=== PATIENT | female | born 1960 | race Caucasian/White ===

== ENCOUNTER 2017-03-07 07:53 | Day surgery (SDC) | payer BC, OTHER ==
[~2017-03-07] VITALS: Ht 160 cm; Wt 98.0 kg
[~2017-03-07 07:53] MED LIST: TUMERIC PO; VITA500046 PO
[2017-03-07] MEDS ORDERED: NS 1,000 ML IV ONE (08:00)
[2017-03-07] MEDS ORDERED: LIDOCAINE 2% INJ 100 MG/5 ML SDV (FOR ANES.) As Ordered ONE (09:05)
[2017-03-07] MEDS ORDERED: PROPOFOL 200 MG/20 ML VIAL As Ordered ONE (09:05)
--- NOTE | 2017-03-07 09:23 | ROOR ---
Patient Name: José Luis Chatman Procedure Date: 03/07/2017 9:02 AM Date of : 1960 Age: 56 Room: [facility] Gender: Female Note Status: Finalized Procedure: Colonoscopy Indications: Screening for colorectal malignant neoplasm Providers: Lucas Vincent Jr, MD Referring MD: Zhanna Alexandra DO Requesting Provider: Medicines: Propofol per Anesthesia Complications: No immediate complications. Procedure: Pre-Anesthesia Assessment: - Prior to the procedure, a History and Physical was performed, and patient medications and allergies were reviewed. The patient is competent. The risks and benefits of the procedure and the sedation options and risks were discussed with the patient. All questions were answered and informed consent was obtained. Patient identification and proposed procedure were verified by the physician and the nurse in the pre-procedure area and in the procedure room. Mental Status Examination: alert and oriented. Airway Examination: normal oropharyngeal airway and neck mobility. Respiratory Examination: clear to auscultation. CV Examination: normal. ASA Grade Assessment: II - A patient with mild systemic disease. After reviewing the risks and benefits, the patient was deemed in satisfactory condition to undergo the procedure. The anesthesia plan was to use moderate sedation / analgesia (conscious sedation). Immediately prior to administration of medications, the patient was re-assessed for adequacy to receive sedatives. The heart rate, respiratory rate, oxygen saturations, blood pressure, adequacy of pulmonary ventilation, and response to care were monitored throughout the procedure. The physical status of the patient was re-assessed after the procedure. The Colonoscope was introduced through the anus and advanced to the cecum, identified by appendiceal orifice and ileocecal valve. The quality of the bowel preparation was adequate and good. The colonoscopy was performed without difficulty. The patient tolerated the procedure well. Findings: The perianal and digital rectal examinations were normal. Pertinent negatives include normal sphincter tone, no palpable rectal lesions and no anal lesion or abnormality was detected. Multiple small and large-mouthed diverticula were found in the sigmoid colon. The rectum, recto-sigmoid colon, descending colon, transverse colon, ascending colon, cecum, appendiceal orifice and ileocecal valve appeared normal. A diminutive polyp was found in the hepatic flexure. The polyp was removed with a jumbo cold forceps. Resection and retrieval were complete. Impression: - Diverticulosis in the sigmoid colon. - The rectum, recto-sigmoid colon, descending colon, transverse colon, ascending colon, cecum, appendiceal orifice and ileocecal valve are normal. - One diminutive polyp at the hepatic flexure, removed with a jumbo cold forceps. Resected and retrieved. Recommendation: - Repeat colonoscopy in 5-10 years for surveillance based on pathology results. Lucas Vincent MD Lucas Vincent Jr, MD 03/07/2017 9:23:24 AM This report has been signed electronically. Number of Addenda: 0 Note Initiated On: 03/07/2017 9:02 AM Estimated Blood Loss: Estimated blood loss: none.
[2017-03-07 09:40] VITALS: BP 138/77
== END 2017-03-07 09:53 | disposition home or self-care (01) ==
LOC: M OPP 07:53 → EDSTATUS 09:00 → M OPP 09:53
PROVIDERS: ATTEND Surgery
DX: Z12.11 Encounter for screening for malignant neoplasm of colon (principal); K57.30 Diverticulosis of large intestine without perforation or abscess without bleeding; D12.3 Benign neoplasm of transverse colon; E66.9 Obesity, unspecified; F17.210 Nicotine dependence, cigarettes, uncomplicated; Z88.0 Allergy status to penicillin

== ENCOUNTER → 2018-07-28 | Outpatient (CLI) | payer BC ==
--- NOTE | 2018-07-28 15:48 | REPMRS ---
Patient History The patient states she had a clinical breast exam in 07/2018. Patient had first child at age 35. Family history of breast cancer at age 50 or over in paternal grandmother, pancreatic cancer in mother. Took hormonal contraceptives for 10 years. 3D TOMOSYNTHESIS WAS PERFORMED. Digital Woman Screen Mammo: July 28, 2018 - Exam #: [id number] Bilateral CC and MLO view(s) were taken. Technologist: Jennyfer Wagoner, Technologist Prior study comparison: August 01, 2015, bilateral digital mammo screening bilat, performed at [facility]. July 25, 2015, digital woman screen mammo performed at [facility]. FINDINGS: The breast tissue is heterogeneously dense. This may lower the sensitivity of mammography. There has been no change in the appearance of the mammogram from the prior studies. There is a moderate amount of residual fibroglandular tissue which is fairly symmetric. There is no interval development of dominant mass, areas of architectural distortion, or clustered microcalcification typical of malignancy. Assessment: BI-RADS/ACR category 1 mammogram. Negative Mammogram. Recommendation Routine screening mammogram in 1 year (for women over age 40). This mammogram was interpreted with the aid of an FDA-approved computer-aided dectection system. Electronically Signed By: Raheem Marcano MD 07/28/18 [id number]
== END ==
LOC: M WHC 14:36
PROVIDERS: ATTEND Nurse Practitioner Family
DX: Z12.31 Encounter for screening mammogram for malignant neoplasm of breast (principal); Z80.0 Family history of malignant neoplasm of digestive organs; Z92.0 Personal history of contraception

== ENCOUNTER → 2018-07-28 | Outpatient (REF) | payer OTHER ==
[2018-07-30 14:25] LABS: HPV HYBRID CAPTURE II Negative (Negative)
== END ==
LOC: M SFHCWAGY 15:05
PROVIDERS: ATTEND Nurse Practitioner Family
DX: Z01.419 Encounter for gynecological examination (general) (routine) without abnormal findings (principal)

== ENCOUNTER → 2018-08-25 | Outpatient (CLI) | payer BC, OTHER ==
--- NOTE | 2018-08-26 02:32 | REP ---
Nickel: Sciatica. Technique: AP, lateral, bilateral oblique, and coned-down views. Findings: Focal early advanced degenerative disc osteophyte complex at L2-3 includes endplate sclerosis, disc space narrowing, and osteophyte formation. Moderate degenerative disc osteophyte complex at L1-2 also identified. Remainder examination appears relatively normal for age. Impression: Focal moderate/early advanced degenerative changes at L1-2 and L2-3 respectively. Electronically Signed by Satnam Patino MD 08/26/2018 02:24 A
== END ==
LOC: M ADAMS 14:15
PROVIDERS: ATTEND Physician Assistant Medical
DX: M25.78 Osteophyte, vertebrae (principal); M51.36 Other intervertebral disc degeneration, lumbar region

== ENCOUNTER → 2018-12-25 | Outpatient (REF) | payer OTHER | LOC: M SFHCWAGY 15:19 | PROVIDERS: ATTEND Nurse Practitioner Family | DX: R87.615 Unsatisfactory cytologic smear of cervix (principal) ==

== ENCOUNTER → 2019-11-03 | Outpatient (REF) | payer OTHER ==
[2019-11-03 14:13] LABS: BLOOD UREA NITROGEN 18 MG/DL (7-18); CALCIUM LEVEL 8.8 MG/DL (8.5-10.1); CARBON DIOXIDE LEVEL 23 MEQ/L (21-32); CHLORIDE LEVEL 109 MEQ/L (98-107); CREATININE FOR GFR 0.59 MG/DL (0.55-1.30); GLOMERULAR FILTRATION RATE > 60.0 (>51); GLUCOSE, FASTING 93 MG/DL (70-100); SODIUM LEVEL 138 MEQ/L (136-145)
== END ==
LOC: M LABDRWAD 12:58
PROVIDERS: ATTEND Internal Medicine
DX: E78.00 Pure hypercholesterolemia, unspecified (principal)

== ENCOUNTER → 2019-11-09 | Outpatient (CLI) | payer BC, OTHER ==
--- NOTE | 2019-11-09 11:42 | REPMRS ---
Patient History The patient states she had a clinical breast exam in October 2019.Family history of breast cancer at age 50 or over in paternal grandmother, pancreatic cancer in mother. Took hormonal contraceptives for 10 years. 3D TOMOSYNTHESIS WAS PERFORMED. The [place] lifetime risk for breast cancer is 14.5%. VOLPARA DENSITY B. Digital Woman Screen Mammo: November 09, 2019 - Exam #: [id number] Bilateral CC and MLO view(s) were taken. Technologist: Vannesa Phoenix, Technologist Prior study comparison: July 28, 2018, bilateral digital woman screen mammo performed at [facility]. August 01, 2015, bilateral digital mammo screening bilat, performed at [facility]. FINDINGS: The breast tissue is heterogeneously dense. This may lower the sensitivity of mammography. There has been no change in the appearance of the mammogram from the prior studies. There is a moderate amount of residual fibroglandular tissue which is fairly symmetric. There is no interval development of dominant mass, areas of architectural distortion, or clustered microcalcification typical of malignancy. Assessment: BI-RADS/ACR category 1 mammogram. Negative Mammogram. Recommendation Routine screening mammogram in 1 year (for women over age 40). This mammogram was interpreted with the aid of an FDA-approved computer-aided dectection system. Electronically Signed By: Raheem Marcano MD 11/09/19 [id number]
== END ==
LOC: M WHC 09:34
PROVIDERS: ATTEND Nurse Practitioner Family
DX: Z12.31 Encounter for screening mammogram for malignant neoplasm of breast (principal); Z80.3 Family history of malignant neoplasm of breast

== ENCOUNTER → 2020-11-22 | Outpatient (CLI) | payer BC ==
--- NOTE | 2020-11-22 17:19 | REPMRS ---
Patient History The patient states she had a clinical breast exam in October 2020. Family history of breast cancer at age 50 or over in paternal grandmother, pancreatic cancer in mother. Took hormonal contraceptives for 10 years. Patient states no breast complaints today. Patient has signed MRS History Sheet. Digital Woman Screen Mammo: November 22, 2020 - Exam #: [id number] Bilateral CC and MLO view(s) were taken. Technologist: Tosha Kapoor, Technologist Prior study comparison: November 09, 2019, bilateral digital woman screen mammo performed at [facility]. July 28, 2018, bilateral digital woman screen mammo performed at [facility]. FINDINGS: There are scattered fibroglandular densities. Screening. Digital screening (2D) mammography was performed bilaterally in the CC and MLO projections. Additionally, breast tomosynthesis (3D mammography) was performed bilaterally in the CC and MLO projections. Todays exam was compared to the prior exam/exams. By history, the patient has no complaints of a palpable breast abnormality or other significant breast complaints. The breasts are unchanged in size and shape. There are no flakito-soft tissue densities or spiculated masses. There is no internal architectural distortion.Once again, stable benign appearing calcifications are seen. There are no suspicious flakito-calcific clusters. Skin thickening or nipple retraction is not present. IMPRESSION: BI-RADS Category 2- Benign Findings. There is no evidence of malignant alteration of the breasts. Followup examination recommended in one year. The Volpara volumetric breast density category is B, there are scattered areas of fibroglandular densities. This mammogram was read with the assistance of [facility],an FDA approved computer aided detection system for mammography. The lifetime Tyrer-Cuzick score is 13.8 % Negative x-ray reports should not delay surgical consultation if a dominant or clinically suspicious mass is present. Not all breast cancers can be identified by mammography. Therefore, we recommend that you continue to perform regular breast self-examination and physical examination and then promptly contact your physician of any concerns or changes. Adenosis and dense breasts may obscure an underlying neoplasm. Assessment: BI-RADS/ACR category 2 mammogram. Benign Findings. Recommendation Routine screening mammogram of both breasts in 1 year. Electronically Signed By: Andrew Valles DO 11/22/20 1711
== END ==
LOC: M WHC 14:50
PROVIDERS: ATTEND Nurse Practitioner Women's Health
DX: Z12.31 Encounter for screening mammogram for malignant neoplasm of breast (principal); Z80.3 Family history of malignant neoplasm of breast; Z80.0 Family history of malignant neoplasm of digestive organs; R92.1 Mammographic calcification found on diagnostic imaging of breast

== ENCOUNTER → 2020-11-22 | Outpatient (REF) | payer OTHER | LOC: M SFHCWAGY 08:43 | PROVIDERS: ATTEND Nurse Practitioner Women's Health | DX: Z12.4 Encounter for screening for malignant neoplasm of cervix (principal); Z77.9 Other contact with and (suspected) exposures hazardous to health ==

== ENCOUNTER → 2022-03-05 | Outpatient (CLI) | payer BC, OTHER | LOC: M WHC 13:48 | PROVIDERS: ATTEND Nurse Practitioner Family | DX: Z12.31 Encounter for screening mammogram for malignant neoplasm of breast (principal) ==

== ENCOUNTER → 2023-03-26 | Outpatient (CLI) | payer BC, OTHER | LOC: M WHC 15:50 | PROVIDERS: ATTEND Internal Medicine | DX: Z12.31 Encounter for screening mammogram for malignant neoplasm of breast (principal); R92.323 Mammographic fibroglandular density, bilateral breasts ==

== ENCOUNTER → 2024-06-17 | Outpatient (CLI) | payer BC | LOC: M WHC 11:53 | PROVIDERS: ATTEND Internal Medicine | DX: Z12.31 Encounter for screening mammogram for malignant neoplasm of breast (principal); R92.333 Mammographic heterogeneous density, bilateral breasts ==

== ENCOUNTER → 2024-08-28 | Outpatient (CLI) | payer BC ==
[~2024-08-28] MED LIST changes: +PROT1TAB2 PO
[2024-08-28 13:35] LABS: BLOOD UREA NITROGEN 18 MG/DL (9-23); CREATININE FOR GFR 0.64 MG/DL (0.55-1.30); GLOMERULAR FILTRATION RATE > 90.0 (>45)
== END ==
LOC: M PLALAB 10:10
PROVIDERS: ATTEND Physician Assistant
DX: K57.30 Diverticulosis of large intestine without perforation or abscess without bleeding (principal)

== ENCOUNTER 2024-08-29 11:34 | Emergency (ER) | payer BC ==
[~2024-08-29] VITALS: Ht 157.5 cm; Wt 95.8 kg
[~2024-08-29 11:34] MED LIST changes: -PROT1TAB2 PO
[2024-08-29] MEDS: MORPHINE 4 MG/ML 1ML VIAL IV ONE (12:36)
[2024-08-29] MEDS: ONDANSETRON 4MG 2ML VIAL IV ONE (12:37)
[2024-08-29] MEDS: NS (Normal Saline) 0.9% 1,000 ML IV SCH (12:37)
[2024-08-29 12:40] LABS: BASO % 0.4 % (0.0-1.0); EOS # 0.1 10^3/uL (0.0-0.5); EOS % 1.6 % (0.0-3.0); HEMATOCRIT 42.2 % (36.0-47.0); HEMOGLOBIN 14.6 g/dl (12.0-15.5); LYMPH % 25.7 % (24.0-44.0); MEAN CORPUSCULAR HEMOGLOBIN 30.8 pg (27.0-33.0); MEAN CORPUSCULAR HGB CONC 34.6 g/dl (32.0-36.5); MONO # 0.4 10^3/uL (0.0-0.8); MONO % 5.3 % (2.0-8.0); NEUTROPHILS # 5.2 10^3/uL (1.5-8.5); NEUTROPHILS % 66.6 % (36.0-66.0); PLATELET COUNT, AUTOMATED 217 10^3/uL (150-450); RED BLOOD COUNT 4.74 10^6/uL (4.00-5.40); WHITE BLOOD COUNT 7.7 10^3/uL (4.0-10.0)
[2024-08-29 13:06] LABS: CK-MB VALUE MASS < 1.0 NG/ML (<3.6); LIPASE 30 U/L (12-53)
[2024-08-29 13:08] LABS: ALBUMIN 3.8 G/DL (3.2-5.2); ALKALINE PHOSPHATASE 75 U/L (35-104); ALT/SGPT 21 U/L (7.0-40); AST/SGOT 13 U/L (<34); BILIRUBIN,DIRECT 0.1 MG/DL (<0.4); BILIRUBIN,TOTAL 0.4 MG/DL (0.3-1.2); BLOOD UREA NITROGEN 18 MG/DL (9-23); CARBON DIOXIDE LEVEL 26 MMOL/L (20-31); CHLORIDE LEVEL 107 MMOL/L (98-107); CPK CREATINE PHOSPHOKINASE 97 U/L (34-145); GLOMERULAR FILTRATION RATE > 90.0 (>45); GLUCOSE, FASTING 130 MG/DL (74-106); MB/CK RELATIVE INDEX 1.03 (< OR =4); POTASSIUM SERUM 4.1 MMOL/L (3.5-5.1); SODIUM LEVEL 141 MMOL/L (136-145); TOTAL PROTEIN 6.5 G/DL (5.7-8.2)
[2024-08-29] MEDS: GASTROGRAFIN SOLUTION 30ML PO SCH (13:28)
[2024-08-29 14:06] LABS: CK-MB VALUE MASS < 1.0 NG/ML (<3.6)
[2024-08-29 14:08] LABS: CPK CREATINE PHOSPHOKINASE 99 U/L (34-145); MB/CK RELATIVE INDEX 1.01 (< OR =4)
[2024-08-29] MEDS ORDERED: ISOVUE-370 76% 100ML VIAL As Ordered ONE (14:46)
[2024-08-29 15:54] LABS: KETONE, URINE AUTO RFX TRACE mg/dL (NEGATIVE); LEUKOCYTE ESTERASE UR AUTO RFX NEGATIVE (NEGATIVE); MUCUS, URINE RFX SMALL (NEGATIVE); NITRITE, URINE AUTO RFX NEGATIVE (NEGATIVE); RBC, URINE AUTO RFX 1 /HPF (0-3); SQUAM EPITHELIAL CELL UR AURFX 2 /HPF (0-6); WBC, URINE AUTO RFX 0 /HPF (0-3)
[2024-08-29 16:04] VITALS: TEMP 96.9
[2024-08-29] MEDS: LIDOCAINE VISCOUS 2% SOLN 15ML UDC PO ONE (16:06)
[2024-08-29] MEDS: MAALOX 30 ML SUSP *UDC PO ONE (16:06)
[2024-08-29] MEDS: PANTOPRAZOLE 40MG VIAL IV ONE (16:06)
[2024-08-29] MEDS ORDERED: PROT1TAB2 PO (17:26)
[2024-08-29 17:45] VITALS: BP 117/59; O2SAT 97
== END 2024-08-29 18:13 | disposition home or self-care (01) ==
LOC: M ED 11:34
DX: R10.13 Epigastric pain (principal); F17.200 Nicotine dependence, unspecified, uncomplicated; Z79.899 Other long term (current) drug therapy; Z88.0 Allergy status to penicillin
CPT/HCPCS: 74177; 80048; 80076; 81001; 82550; 82553; 83605; 83690; 84484; 85025; 93005; 93041; 94760; 99285; J2405; J2470; Q9963; Q9967

== ENCOUNTER 2024-10-29 07:58 | Day surgery (SDC) | payer BC ==
[~2024-10-29] VITALS: Ht 160 cm; Wt 93.9 kg
[~2024-10-29 07:58] MED LIST changes: +FLUTISP; +LIDOCAINE 2% 100 MG/5 ML SDV (FOR ANES.) As Ordered ONE; +OMEG10002 PO; +PANT40TA29 PO; +PROT1TAB2 PO; +RA T500C2 PO; +ROSU10TA61 PO; +VITA100093 PO
[2024-10-29 09:15] VITALS: BP 120/70; TEMP 97.2; O2SAT 94
== END 2024-10-29 09:34 | disposition home or self-care (01) ==
LOC: M OPP 07:58
PROVIDERS: ATTEND Surgery
DX: K57.30 Diverticulosis of large intestine without perforation or abscess without bleeding (principal); K64.2 Third degree hemorrhoids; Z86.0100 Personal history of colon polyps, unspecified; K29.50 Unspecified chronic gastritis without bleeding; K44.9 Diaphragmatic hernia without obstruction or gangrene; K31.89 Other diseases of stomach and duodenum; K30 Functional dyspepsia; Z88.0 Allergy status to penicillin; Z79.51 Long term (current) use of inhaled steroids; Z79.899 Other long term (current) drug therapy; F17.210 Nicotine dependence, cigarettes, uncomplicated
CPT/HCPCS: 43239; 45378; 88305; J3010